=== PATIENT | male | born 1970 | race Caucasian/White ===

== ENCOUNTER 2017-09-11 22:38 | Emergency (ER) | payer OTHER ==
[2017-09-11 22:46] VITALS: BP 164/104
[2017-09-11] MEDS ORDERED: Sodium Chloride 0.9% 10 ML Syringe FLUSH PRN (22:57)
[2017-09-11] MEDS ORDERED: Sodium Chloride 0.9% 1,000 ML IV STA (22:57)
[2017-09-11] MEDS ORDERED: HYDROmorphone 0.5 MG/0.5 ML SYRINGE IVPUSH ONE (22:58)
[2017-09-11] MEDS ORDERED: Ondansetron 4 MG/2 ML SDV IVPUSH ONE (23:17)
--- NOTE | 2017-09-12 00:12 | EDM.PDOC ---
<LjisadoraJasonErnie - Last Filed: 09/12/17 06:51> ED HPI GENERAL MEDICAL PROBLEM - General Chief Complaint: Abdominal Pain Stated Complaint: [facility] Time Seen by Provider: 09/11/17 22:44 Source of Information: Reports: Patient, EMS History Limitations: Reports: No Limitations - History of Present Illness INITIAL COMMENTS - FREE TEXT/NARRATIVE: The patient presents with generalized abdominal pain. 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 He was standing when it happened. He has nausea and vomiting but not much. He has no diarrhea. The pain is sharp and severe and it gets worse at times. He has no dysuria or hematuria. He had a hernia repair awhile back. He still has his gallbladder and appendix. He has no other health problems. The patient got versed and dilaudid on the way in. Onset: Sudden Duration: Hour(s): (5:30pm) Location: Reports: Abdomen Quality: Reports: Sharp Severity: Severe Improves with: Reports: None Worsens with: Reports: None Associated Symptoms: Reports: Nausea/Vomiting. Denies: Chest Pain, Cough, Fever /Chills, Headaches, Loss of Appetite, Shortness of Breath Abdomen Pain Score (Numeric/FACES): 10 - Related Data Allergies Allergy/AdvReac Type Severity Reaction Status Date / Time No Known Allergies Allergy Verified 09/11/17 22:42 Home Meds: Home Meds Ondansetron [Zofran ODT] 4 mg PO Q6H PRN #10 tab.dis 09/12/17 [Rx] Past Medical History HEENT History: Reports: Impaired Vision Other HEENT History: Wears glasses Cardiovascular History: Reports: High Cholesterol, Hypertension Gastrointestinal History: Reports: Chronic Constipation, GERD Other Gastrointestinal History: R inguinal hernia Musculoskeletal History: Reports: Back Pain, Chronic Neurological History: Reports: Migraines, TIA Psychiatric History: Reports: Bipolar, Depression Other Psychiatric History: alcoholism Endocrine/Metabolic History: Reports: Hyperthyroidism Hematologic History: Reports: None - Past Surgical History Other Musculoskeletal Surgeries/Procedures:: foot surgery, low back surgery Social & Family History - Tobacco Use Smoking Status *Q: Current Every Day Smoker Years of Tobacco use: 32 Packs/Tins Daily: 1.5 Second Hand Smoke Exposure: No - Alcohol Use Days Per Week of Alcohol Use: 0 Number of Drinks Per Day: 0 Total Drinks Per Week: 0 - Recreational Drug Use Recreational Drug Use: Yes Drug Use in Last 12 Months: No Recreational Drug Type: Reports: Marijuana/Hashish Recreational Drug Use Frequency: Weekly ED ROS GENERAL - Review of Systems Review Of Systems: See Below Constitutional: Reports: No Symptoms HEENT: Reports: No Symptoms Respiratory: Reports: No Symptoms Cardiovascular: Reports: No Symptoms Endocrine: Reports: No Symptoms GI/Abdominal: Reports: Abdominal Pain, Nausea, Vomiting. Denies: Diarrhea : Reports: No Symptoms Musculoskeletal: Reports: No Symptoms Skin: Reports: No Symptoms Neurological: Reports: No Symptoms ED EXAM, GI/ABD - Physical Exam Exam: See Below Exam Limited By: No Limitations General Appearance: Alert, No Apparent Distress Ears: Normal External Exam Nose: Normal Inspection Head: Atraumatic, Normocephalic Neck: Normal Inspection Respiratory/Chest: No Respiratory Distress, Lungs Clear, Normal Breath Sounds Cardiovascular: Regular Rate, Rhythm, No Edema, No Murmur GI/Abdominal Exam: Soft, No Organomegaly, No Mass, Tender (Moderate pain to his mid abdomen) Back Exam: Normal Inspection Extremities: Normal Inspection Course - Vital Signs Last Recorded V/S: Last Vital Signs Temp 95.0 F L 09/11/17 22:43 Pulse 55 L 09/11/17 22:43 Resp 18 09/11/17 22:43 BP 164/104 H 09/11/17 22:43 Pulse Ox 100 09/11/17 22:43 - Orders/Labs/Meds Orders: Active Orders 24 hr Category Date Time Status EKG Documentation Completion [RC] ASDIRECTED Care 09/12/17 01:26 Active Peripheral IV Care [RC] . DIRECTED Care 09/11/17 22:58 Active Abdomen 2V AP Flat Upright [CR] Stat Exams 09/12/17 08:54 Taken Sodium Chloride 0.9% [Normal Saline] 1,000 ml Med 09/12/17 09:00 Active IV ONETIME Sodium Chloride 0.9% [Saline Flush] Med 09/11/17 22:57 Active 10 ml FLUSH ASDIRECTED PRN Peripheral IV Insertion Adult [OM.PC] Stat Oth 09/11/17 22:57 Ordered EKG 12 Lead [EK] Stat Ther 09/12/17 01:26 Ordered Medication Orders Sodium Chloride (Normal Saline) 1,000 mls @ 999 mls/hr IV ONETIME ROOPA Last Admin: 09/12/17 09:21 Dose: 999 mls/hr Sodium Chloride (Saline Flush) 10 ml FLUSH ASDIRECTED PRN PRN Reason: Keep Vein Open Last Admin: 09/11/17 23:11 Dose: 10 ml Labs: Laboratory Tests 09/11/17 09/11/17 09/11/17 Range/Units 23:17 23:17 23:17 WBC 15.03 H (4.23-9.07) K/mm3 RBC 5.16 (4.63-6.08) M/mm3 Hgb 16.4 (13.7-17.5) gm/L Hct 48.4 (40.1-51.0) % MCV 93.8 H (79.0-92.2) fl MCH 31.8 (25.7-32.2) pg MCHC 33.9 (32.2-35.5) g/dl RDW Std Deviation 47.8 H (35.1-43.9) fL Plt Count 207 (163-337) K/mm3 MPV 11.8 (9.4-12.3) fl Neut % (Auto) 82.8 H (34.0-67.9) % Lymph % (Auto) 10.0 L (21.8-53.1) % [place] % (Auto) 5.5 (5.3-12.2) % Eos % (Auto) 0.7 L (0.8-7.0) Baso % (Auto) 1.0 (0.1-1.2) % Neut # (Auto) 12.46 H (1.78-5.38) K/mm3 Lymph # (Auto) 1.50 (1.32-3.57) K/mm3 [place] # (Auto) 0.82 (0.30-0.82) K/mm3 Eos # (Auto) 0.10 (0.04-0.54) K/mm3 Baso # (Auto) 0.15 H (0.01-0.08) K/mm3 Sodium 141 (136-145) mEq/L Potassium 4.4 (3.5-5.1) mEq/L Chloride 104 (98-107) mEq/L Carbon Dioxide 24 (21-32) mEq/L Anion Gap 17.4 H (5-15) BUN 12 (7-18) mg/dL Creatinine 1.1 (0.7-1.3) mg/dL Est Cr Clr Drug Dosing 80.32 mL/min Estimated GFR (MDRD) > 60 (>60) mL/min BUN/Creatinine Ratio 10.9 L (14-18) Glucose 153 H (74-106) mg/dL Calcium 9.1 (8.5-10.1) mg/dL Total Bilirubin 0.5 (0.2-1.0) mg/dL AST 15 (15-37) U/L ALT 22 (16-63) U/L Alkaline Phosphatase 71 (46-116) U/L Troponin I < 0.017 (0.00-0.056) ng/mL Total Protein 7.4 (6.4-8.2) g/dl Albumin 4.0 (3.4-5.0) g/dl Globulin 3.4 gm/dL Albumin/Globulin Ratio 1.2 (1-2) Lipase 102 (73-393) U/L Urine Color (Yellow) Urine Appearance (Clear) Urine pH (5.0-8.0) Ur Specific [place] (1.005-1.030) Urine Protein (Negative) Urine Glucose (UA) (Negative) Urine Ketones (Negative) Urine Occult Blood (Negative) Urine Nitrite (Negative) Urine Bilirubin (Negative) Urine Urobilinogen (0.2-1.0) Ur Leukocyte Esterase (Negative) Urine RBC (0-5) /hpf Urine WBC (0-5) /hpf Ur Epithelial Cells (0-5) /hpf Urine Bacteria (FEW) /hpf Urine Mucus (FEW) /hpf 09/12/17 09/12/17 Range/Units 01:00 05:58 WBC 10.42 H (4.23-9.07) K/mm3 RBC 5.07 (4.63-6.08) M/mm3 Hgb 16.2 (13.7-17.5) gm/L Hct 47.7 (40.1-51.0) % MCV 94.1 H (79.0-92.2) fl MCH 32.0 (25.7-32.2) pg MCHC 34.0 (32.2-35.5) g/dl RDW Std Deviation 47.5 H (35.1-43.9) fL Plt Count 197 (163-337) K/mm3 MPV 11.5 (9.4-12.3) fl Neut % (Auto) 67.1 (34.0-67.9) % Lymph % (Auto) 24.4 (21.8-53.1) % [place] % (Auto) 7.0 (5.3-12.2) % Eos % (Auto) 1.1 (0.8-7.0) Baso % (Auto) 0.4 (0.1-1.2) % Neut # (Auto) 7.00 H (1.78-5.38) K/mm3 Lymph # (Auto) 2.54 (1.32-3.57) K/mm3 [place] # (Auto) 0.73 (0.30-0.82) K/mm3 Eos # (Auto) 0.11 (0.04-0.54) K/mm3 Baso # (Auto) 0.04 (0.01-0.08) K/mm3 Sodium (136-145) mEq/L Potassium (3.5-5.1) mEq/L Chloride (98-107) mEq/L Carbon Dioxide (21-32) mEq/L Anion Gap (5-15) BUN (7-18) mg/dL Creatinine (0.7-1.3) mg/dL Est Cr Clr Drug Dosing mL/min Estimated GFR (MDRD) (>60) mL/min BUN/Creatinine Ratio (14-18) Glucose (74-106) mg/dL Calcium (8.5-10.1) mg/dL Total Bilirubin (0.2-1.0) mg/dL AST (15-37) U/L ALT (16-63) U/L Alkaline Phosphatase (46-116) U/L Troponin I (0.00-0.056) ng/mL Total Protein (6.4-8.2) g/dl Albumin (3.4-5.0) g/dl Globulin gm/dL Albumin/Globulin Ratio (1-2) Lipase (73-393) U/L Urine Color Yellow (Yellow) Urine Appearance Clear (Clear) Urine pH 6.0 (5.0-8.0) Ur Specific [place] 1.015 (1.005-1.030) Urine Protein Negative (Negative) Urine Glucose (UA) Negative (Negative) Urine Ketones 2+ H (Negative) Urine Occult Blood Negative (Negative) Urine Nitrite Negative (Negative) Urine Bilirubin Negative (Negative) Urine Urobilinogen 0.2 (0.2-1.0) Ur Leukocyte Esterase Negative (Negative) Urine RBC 0-5 (0-5) /hpf Urine WBC 0-5 (0-5) /hpf Ur Epithelial Cells 0-5 (0-5) /hpf Urine Bacteria Not seen (FEW) /hpf Urine Mucus Not seen (FEW) /hpf Meds: Medications Generic Name Dose Route Start Last Admin Trade Name Freq PRN Reason Stop Dose Admin Sodium Chloride 1,000 mls @ 999 mls/hr 09/12/17 09:00 09/12/17 09:21 Normal Saline IV 999 mls/hr ONETIME ROOPA Administration Sodium Chloride 10 ml 09/11/17 22:57 09/11/17 23:11 Saline Flush FLUSH 10 ml ASDIRECTED PRN Administration Keep Vein Open Discontinued Medications Generic Name Dose Route Start Last Admin Trade Name Freq PRN Reason Stop Dose Admin Al Hydroxide/Mg Hydroxide 30 0 ml 09/12/17 02:38 09/12/17 02:44 ml/ Lidocaine HCl 15 ml PO 09/12/17 02:39 45 ml ONETIME ONE Administration Al Hydroxide/Mg Hydroxide 30 0 ml 09/12/17 09:38 09/12/17 09:43 ml/ Lidocaine HCl 15 ml PO 09/12/17 09:39 45 ml ONETIME ONE Administration Diatrizoate Meglum/Diatrizoate Sod 90 ml 09/12/17 00:37 09/12/17 00:53 Gastrografin 37% PO 09/12/17 00:38 90 ml ONETIME ONE Administration Famotidine 20 mg 09/12/17 02:37 09/12/17 02:44 Pepcid IVPUSH 09/12/17 02:38 20 mg ONETIME ONE Administration Famotidine 20 mg 09/12/17 08:54 09/12/17 09:23 Pepcid IVPUSH 09/12/17 08:55 20 mg ONETIME ONE Administration Hydromorphone HCl 0.5 mg 09/11/17 22:58 09/11/17 23:11 Dilaudid IVPUSH 09/11/17 22:59 0.5 mg ONETIME ONE Administration Hydromorphone HCl 0.5 mg 09/12/17 00:25 09/12/17 00:29 Dilaudid IVPUSH 09/12/17 00:26 0.5 mg ONETIME ONE Administration Hydromorphone HCl 0.5 mg 09/12/17 01:42 09/12/17 01:53 Dilaudid IVPUSH 09/12/17 01:43 0.5 mg ONETIME ONE Administration Sodium Chloride 1,000 mls @ 1,000 mls/hr 09/11/17 22:57 09/11/17 23:10 Normal Saline IV 09/11/17 23:56 1,000 mls/hr .BOLUS STA Administration Iopamidol 125 ml 09/12/17 00:37 09/12/17 00:53 Isovue-300 (61%) IVPUSH 09/12/17 00:38 125 ml ONETIME ONE Administration Ondansetron HCl 4 mg 09/11/17 23:17 09/11/17 23:20 Zofran IVPUSH 09/11/17 23:18 4 mg ONETIME ONE Administration Ondansetron HCl 4 mg 09/12/17 08:54 09/12/17 09:22 Zofran IVPUSH 09/12/17 08:55 4 mg ONETIME ONE Administration - Re-Assessments/Exams Free Text/Narrative Re-Assessment/Exam: 09/12/17 00:12 I ordered an IV NS, labs, UA, CT of his abdomen and pelvis and dilaudid 0.5mg IV. 09/12/17 06:52 His WBC was elevated at 15.03. His anion gap was elevated at 17.4. His glucose was 153. His CT shows no acute findings. He still has some pain so I gave him more dilaudid a few times and pepcid and a GI cocktail. That did help some. I decided to do an EKG and that showed a NSR with no acute changes. His troponin was negative. He is still having pain. I did not feel I could send him home. I called Dr Vance this morning and he will comes see the patient. With the normal CT he is not sure he can offer him much but he will come see him around 8am. It is the end of my shift. Dr Lawler to take over. Departure - Departure Disposition: Home, Self-Care 01 Clinical Impression: Abdominal pain Qualifiers: Abdominal location: generalized Qualified Code(s): R10.84 - Generalized abdominal pain Diarrhea Qualifiers: Diarrhea type: unspecified type Qualified Code(s): R19.7 - Diarrhea, unspecified Vomiting Qualifiers: Vomiting type: unspecified Vomiting Intractability: non-intractable - Discharge Information Prescriptions: Ondansetron [Zofran ODT] 4 mg PO Q6H PRN #10 tab.dis PRN Reason: Nausea/Vomiting Referrals: PCP,Unobtain [Ordering Only Provider] - Forms: ED Department Discharge Additional Instructions: Clear liquids until this evening, than very careful bland diet as tolerated, begin Prilosec 40 mg daily, Zofran every 6-8 hours if needed for further nausea or vomiting, and probiotic and take that 2-3 times daily for 1 week, Follow up clinic if not much better by tomorrow, return to ED as needed if symptoms worsening in any way - My Orders Last 24 Hours: My Active Orders 09/12/17 08:54 Abdomen 2V AP Flat Upright [CR] Stat 09/12/17 09:00 Sodium Chloride 0.9% [Normal Saline] 1,000 ml IV ONETIME - Assessment/Plan Last 24 Hours: My Active Orders 09/12/17 08:54 Abdomen 2V AP Flat Upright [CR] Stat 09/12/17 09:00 Sodium Chloride 0.9% [Normal Saline] 1,000 ml IV ONETIME <Dany Lawler - Last Filed: 09/12/17 10:05> Course - Re-Assessments/Exams Free Text/Narrative Re-Assessment/Exam: 09/12/17. 09:00. I have assumed care of patient from Dr. Blanchard after change of shift. I do agree with his history and exam as documented. He had been waiting for Dr. Calhoun, general surgeon to consult. He did evaluate patient, reviewed his CT. He does not see any type of acute surgical abnormality at this time. He has offered to do laparoscopy, exploratory but patient declines. He does feel better from last evening when he first came in but still does have moderate pain and cramping time of my exam a short time ago. We are going to give another liter of fluid, some more pain and nausea medication. Start having diarrhea a very short time ago. He is not obstructed. I am going to check a flat and upright just to check stool gas pattern. 10:00. Flat and upright does show contrast getting clear down to the rectum. There are a couple small air-fluid levels on the right but nothing major. Discharge instructions as documented. Departure - Departure Time of Disposition: 10:03 Condition: Fair
[2017-09-12] MEDS ORDERED: HYDROmorphone 0.5 MG/0.5 ML SYRINGE IVPUSH ONE ×3 (00:25→10:00)
[2017-09-12] MEDS ORDERED: Diatrizoate Meglumine/Diatrizoate Sodium 37% 120 ML Bottle PO ONE (00:37)
[2017-09-12] MEDS ORDERED: Iopamidol 612 MG/ML 150 ML Bottle IVPUSH ONE (00:37)
[2017-09-12] MEDS ORDERED: Famotidine 20 MG/2 ML SDV IVPUSH ONE ×2 (02:37→08:54)
[2017-09-12] MEDS ORDERED: Alum Hydrox/Mag Hydrox/Simeth 30 ML, Lidocaine 2% 15 ML PO ONE ×4 (02:38→09:38)
--- NOTE | 2017-09-12 07:15 | CT ---
CT abdomen and pelvis Technique: Multiple axial sections were obtained from above the dome of the diaphragm inferiorly through the pubic symphysis. Intravenous and oral contrast was utilized. Delayed images were also obtained through the abdomen and pelvis. Comparison: No prior abdominal imaging. Findings: Multiple small low-density lesions are seen throughout the liver involving both right and left lobes most likely due to innumerable small cysts. Mild scarring is noted within the left lung base. Spleen appears within normal limits. Pancreas is within normal limits. Adrenal glands show no nodule. Kidneys show symmetric contrast enhancement without hydronephrosis or mass. Gallbladder contains no calcified gallstones. Aorta shows atherosclerotic change without aneurysm. No retroperitoneal adenopathy or mesenteric abnormalities are seen. Appendix is seen which appears normal in size. Delayed images show contrast excretion from both kidneys with contrast noted within the bladder. No pelvic mass or adenopathy is seen. No free fluid or inflammatory change is seen. Bone window settings were reviewed which show previous surgery with transpedicle screws at L4-L5. Anterior wedging noted of L1 which is felt to be old. Impression: 1. Incidental findings as noted above. Nothing acute is identified on CT study of the abdomen and pelvis. Diagnostic code #2 I agree with preliminary report issued by [email or web address] ([facility] preliminary report dictated on 09/12/17, 2:21 AM Central Time)
--- NOTE | 2017-09-12 08:29 | PCM.CONSN ---
- General Info Date of Service: 09/12/17 - Patient Data Vitals - Most Recent: Last Vital Signs Temp 95.0 F L 09/11/17 22:43 Pulse 55 L 09/11/17 22:43 Resp 18 09/11/17 22:43 BP 164/104 H 09/11/17 22:43 Pulse Ox 100 09/11/17 22:43 Weight - Most Recent: 75.75 kg Lab Results Last 24 Hours: Laboratory Results - last 24 hr 09/11/17 09/11/17 09/11/17 Range/Units 23:17 23:17 23:17 WBC 15.03 H (4.23-9.07) K/mm3 RBC 5.16 (4.63-6.08) M/mm3 Hgb 16.4 (13.7-17.5) gm/L Hct 48.4 (40.1-51.0) % MCV 93.8 H (79.0-92.2) fl MCH 31.8 (25.7-32.2) pg MCHC 33.9 (32.2-35.5) g/dl RDW Std Deviation 47.8 H (35.1-43.9) fL Plt Count 207 (163-337) K/mm3 MPV 11.8 (9.4-12.3) fl Neut % (Auto) 82.8 H (34.0-67.9) % Lymph % (Auto) 10.0 L (21.8-53.1) % [place] % (Auto) 5.5 (5.3-12.2) % Eos % (Auto) 0.7 L (0.8-7.0) Baso % (Auto) 1.0 (0.1-1.2) % Neut # (Auto) 12.46 H (1.78-5.38) K/mm3 Lymph # (Auto) 1.50 (1.32-3.57) K/mm3 [place] # (Auto) 0.82 (0.30-0.82) K/mm3 Eos # (Auto) 0.10 (0.04-0.54) K/mm3 Baso # (Auto) 0.15 H (0.01-0.08) K/mm3 Sodium 141 (136-145) mEq/L Potassium 4.4 (3.5-5.1) mEq/L Chloride 104 (98-107) mEq/L Carbon Dioxide 24 (21-32) mEq/L Anion Gap 17.4 H (5-15) BUN 12 (7-18) mg/dL Creatinine 1.1 (0.7-1.3) mg/dL Est Cr Clr Drug Dosing 80.32 mL/min Estimated GFR (MDRD) > 60 (>60) mL/min BUN/Creatinine Ratio 10.9 L (14-18) Glucose 153 H (74-106) mg/dL Calcium 9.1 (8.5-10.1) mg/dL Total Bilirubin 0.5 (0.2-1.0) mg/dL AST 15 (15-37) U/L ALT 22 (16-63) U/L Alkaline Phosphatase 71 (46-116) U/L Troponin I < 0.017 (0.00-0.056) ng/mL Total Protein 7.4 (6.4-8.2) g/dl Albumin 4.0 (3.4-5.0) g/dl Globulin 3.4 gm/dL Albumin/Globulin Ratio 1.2 (1-2) Lipase 102 (73-393) U/L Urine Color (Yellow) Urine Appearance (Clear) Urine pH (5.0-8.0) Ur Specific [place] (1.005-1.030) Urine Protein (Negative) Urine Glucose (UA) (Negative) Urine Ketones (Negative) Urine Occult Blood (Negative) Urine Nitrite (Negative) Urine Bilirubin (Negative) Urine Urobilinogen (0.2-1.0) Ur Leukocyte Esterase (Negative) Urine RBC (0-5) /hpf Urine WBC (0-5) /hpf Ur Epithelial Cells (0-5) /hpf Urine Bacteria (FEW) /hpf Urine Mucus (FEW) /hpf 09/12/17 09/12/17 Range/Units 01:00 05:58 WBC 10.42 H (4.23-9.07) K/mm3 RBC 5.07 (4.63-6.08) M/mm3 Hgb 16.2 (13.7-17.5) gm/L Hct 47.7 (40.1-51.0) % MCV 94.1 H (79.0-92.2) fl MCH 32.0 (25.7-32.2) pg MCHC 34.0 (32.2-35.5) g/dl RDW Std Deviation 47.5 H (35.1-43.9) fL Plt Count 197 (163-337) K/mm3 MPV 11.5 (9.4-12.3) fl Neut % (Auto) 67.1 (34.0-67.9) % Lymph % (Auto) 24.4 (21.8-53.1) % [place] % (Auto) 7.0 (5.3-12.2) % Eos % (Auto) 1.1 (0.8-7.0) Baso % (Auto) 0.4 (0.1-1.2) % Neut # (Auto) 7.00 H (1.78-5.38) K/mm3 Lymph # (Auto) 2.54 (1.32-3.57) K/mm3 [place] # (Auto) 0.73 (0.30-0.82) K/mm3 Eos # (Auto) 0.11 (0.04-0.54) K/mm3 Baso # (Auto) 0.04 (0.01-0.08) K/mm3 Sodium (136-145) mEq/L Potassium (3.5-5.1) mEq/L Chloride (98-107) mEq/L Carbon Dioxide (21-32) mEq/L Anion Gap (5-15) BUN (7-18) mg/dL Creatinine (0.7-1.3) mg/dL Est Cr Clr Drug Dosing mL/min Estimated GFR (MDRD) (>60) mL/min BUN/Creatinine Ratio (14-18) Glucose (74-106) mg/dL Calcium (8.5-10.1) mg/dL Total Bilirubin (0.2-1.0) mg/dL AST (15-37) U/L ALT (16-63) U/L Alkaline Phosphatase (46-116) U/L Troponin I (0.00-0.056) ng/mL Total Protein (6.4-8.2) g/dl Albumin (3.4-5.0) g/dl Globulin gm/dL Albumin/Globulin Ratio (1-2) Lipase (73-393) U/L Urine Color Yellow (Yellow) Urine Appearance Clear (Clear) Urine pH 6.0 (5.0-8.0) Ur Specific [place] 1.015 (1.005-1.030) Urine Protein Negative (Negative) Urine Glucose (UA) Negative (Negative) Urine Ketones 2+ H (Negative) Urine Occult Blood Negative (Negative) Urine Nitrite Negative (Negative) Urine Bilirubin Negative (Negative) Urine Urobilinogen 0.2 (0.2-1.0) Ur Leukocyte Esterase Negative (Negative) Urine RBC 0-5 (0-5) /hpf Urine WBC 0-5 (0-5) /hpf Ur Epithelial Cells 0-5 (0-5) /hpf Urine Bacteria Not seen (FEW) /hpf Urine Mucus Not seen (FEW) /hpf Med Orders - Current: Current Medications Sodium Chloride (Saline Flush) 10 ml FLUSH ASDIRECTED PRN PRN Reason: Keep Vein Open Last Admin: 09/11/17 23:11 Dose: 10 ml Discontinued Medications Al Hydroxide/Mg Hydroxide 30 (ml/ Lidocaine HCl 15 ml) 0 ml PO ONETIME ONE Stop: 09/12/17 02:39 Last Admin: 09/12/17 02:44 Dose: 45 ml Diatrizoate Meglum/Diatrizoate Sod (Gastrografin 37%) 90 ml PO ONETIME ONE Stop: 09/12/17 00:38 Last Admin: 09/12/17 00:53 Dose: 90 ml Famotidine (Pepcid) 20 mg IVPUSH ONETIME ONE Stop: 09/12/17 02:38 Last Admin: 09/12/17 02:44 Dose: 20 mg Hydromorphone HCl (Dilaudid) 0.5 mg IVPUSH ONETIME ONE Stop: 09/11/17 22:59 Last Admin: 09/11/17 23:11 Dose: 0.5 mg Hydromorphone HCl (Dilaudid) 0.5 mg IVPUSH ONETIME ONE Stop: 09/12/17 00:26 Last Admin: 09/12/17 00:29 Dose: 0.5 mg Hydromorphone HCl (Dilaudid) 0.5 mg IVPUSH ONETIME ONE Stop: 09/12/17 01:43 Last Admin: 09/12/17 01:53 Dose: 0.5 mg Sodium Chloride (Normal Saline) 1,000 mls @ 1,000 mls/hr IV .BOLUS STA Stop: 09/11/17 23:56 Last Admin: 09/11/17 23:10 Dose: 1,000 mls/hr Iopamidol (Isovue-300 (61%)) 125 ml IVPUSH ONETIME ONE Stop: 09/12/17 00:38 Last Admin: 09/12/17 00:53 Dose: 125 ml Ondansetron HCl (Zofran) 4 mg IVPUSH ONETIME ONE Stop: 09/11/17 23:18 Last Admin: 09/11/17 23:20 Dose: 4 mg Consult PN Assessment/Plan Procedures: Procedures ANTITHROMBIN III ACTIVITY (07/20/15) ASSAY OF BLOOD LIPOPROTEIN (11/18/15) ASSAY OF FREE THYROXINE (10/26/14) ASSAY OF HOMOCYSTINE (07/20/15) ASSAY OF LIPOPROTEIN (11/18/15) ASSAY THYROID STIM HORMONE (11/18/15) CLOT INHIBIT PROT C ACTIVITY (07/20/15) CLOT INHIBIT PROT S FREE (07/20/15) COMPLETE CBC W/AUTO DIFF WBC (11/18/15) COMPREHEN METABOLIC PANEL (10/26/14) EXC TR-EXT B9+TUCKER 0.5 CM< (08/18/15) EXTRACRANIAL BILAT STUDY (07/22/15) F5 GENE (07/20/15) FREE ASSAY (FT-3) (10/26/14) LIPID PANEL (10/26/14) METABOLIC PANEL TOTAL CA (11/18/15) MR-STAPH DNA AMP PROBE (07/20/15) MRI BRAIN STEM W/O & W/DYE (10/26/14) PROTHROMBIN TIME (07/20/15) PRP I/ORION INIT REDUC >5 YR (08/18/15) ROUTINE VENIPUNCTURE (11/18/15) THROMBOPLASTIN TIME PARTIAL (07/20/15) TTE W/DOPPLER COMPLETE (07/22/15) UR ALBUMIN QUANTITATIVE (10/26/14) URINALYSIS AUTO W/SCOPE (10/26/14) Problem List Initiated/Reviewed/Updated: Yes My Orders Last 24 Hours: surgical consult dictated DAY
[2017-09-12] MEDS ORDERED: Ondansetron 4 MG/2 ML SDV IVPUSH ONE (08:54)
[2017-09-12] MEDS ORDERED: Sodium Chloride 0.9% 1,000 ML IV SCH (09:00)
--- NOTE | 2017-09-12 10:09 | CR ---
Abdomen: Supine and upright views of the abdomen were obtained. Comparison: Prior CT exam performed earlier on the same day of the abdomen and pelvis, no previous plain film study. Contrast seen within colon. Contrast has passed from the small bowel. Contrast is noted within the bladder from previous CT exam which is unremarkable. No free air is seen. Previous lumbar spine surgery is noted. No abnormal calcifications or discrete soft tissue abnormality is seen. Impression: 1. Contrast from previous CT study is within a nondilated colon. 2. Other incidental findings. Diagnostic code #2
--- NOTE | 2017-09-12 11:39 | CONS ---
CONSULTING PHYSICIAN: Anival Vance MD DATE OF CONSULTATION: 09/12/2017 HISTORY OF PRESENT ILLNESS: This is a 46-year-old male, about 5:30 yesterday evening, he began to have pain in the abdomen in the periumbilical region, quite crampy, would come and go, and increased in intensity, so about midnight, he came in to the emergency room for evaluation. He was vomiting. He had a hernia repair in the past with mesh. But, otherwise, no other abdominal surgery. A CT scan was done without contrast and did not show any pathology. [place] [id number], came down to 10. He was given some Dilaudid and a cocktail. The patient's surgical consultation was asked for. By the time that I saw him, the patient's pain had ameliorated, but was still present. CT scan was reviewed and noted. This was done without contrast. PAST MEDICAL HISTORY: Elevated cholesterol, hypertension, chronic constipation, right inguinal hernia repair in the past, migraines, TIAs, bipolar depression, alcoholism. SOCIAL HISTORY: He is a current everyday smoker. Says he has been using alcohol for some time. ALLERGIES: None known. FAMILY HISTORY: Not known. PHYSICAL EXAMINATION: VITAL SIGNS: Shows a temperature 95, blood pressure 164/104, respirations 18, pulse 55. HEENT: Eyes: Sclerae white. Extraocular muscle motion normal. Oral cavity: Healthy mucous membrane with mouth and tongue. NECK: Supple. No nodes. No thyromegaly. LUNGS: Clear. No rales, rhonchi, fremitus, or dullness. HEART: Tone is regular rate. No S3, S4, jugular venous distention. ABDOMEN: No ventral, umbilical, or inguinal hernias. There is slight tenderness around the belly button, but otherwise normal. No abdominal distention. EXTREMITIES: Upper and lower extremities, no angulation deformities. SKIN: Warm and dry. NEUROLOGIC: No sensorineural deficit. ASSESSMENT: Abdominal pain, possibly crampy in nature. Suspect intermittent bowel obstruction. The CT scan is incomplete, needs to be repeated with IV and oral contrast. Discussed this with the ER Dr. Florian and recommend they do that. MMODAL /[id number]
--- NOTE | 2017-09-12 11:42 | CONS ---
CONSULTING PHYSICIAN: Anival Vance MD DATE OF CONSULTATION: 09/12/2017 ADDENDUM: Review of the CT scan did show the use of oral contrast. I have gone over with the radiologist. I do not see any pathology in the small bowel in the absence of any hernias. At the present, it is a nonsurgical abdomen and I have no specific recommendations. Followup up with his surgeon, Dr. Villeda. MMODAL /[id number]
== END 2017-09-12 10:37 | disposition home or self-care (01) ==
LOC: JD.ED 22:38
DX: R10.84 Generalized abdominal pain (principal); R19.7 Diarrhea, unspecified; R11.2 Nausea with vomiting, unspecified; I10 Essential (primary) hypertension; E78.00 Pure hypercholesterolemia, unspecified; F17.210 Nicotine dependence, cigarettes, uncomplicated
CPT/HCPCS: 36415; 74019; 74177; 80053; 81001; 83690; 84484; 85025; 93005; 96361; 96374; 96375; 96376; 99285; A9270; J1170; J2405; J7040; J7050; Q9963; Q9967; 99284